=== PATIENT | female | born 1970 | race Caucasian/White ===

== ENCOUNTER 2021-12-14 02:52 | Emergency (ER) | payer SELFPAY ==
[2021-12-14 03:08] VITALS: BP 139/83
[2021-12-14] MEDS ORDERED: diphenhydrAMINE 50 MG/ML INJ (BENADRYL) IVP ONE (03:30)
[2021-12-14] MEDS ORDERED: methylPREDNISolone 125 MG (Solu-MEDROL) VIAL IVP ONE (03:30)
[2021-12-14] MEDS ORDERED: FAMOTIDINE 20MG/2ML IV (PEPCID) IVP ONE (03:30)
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
[2021-12-14] MEDS ORDERED: PRD20T PO (04:51)
[2021-12-14] MEDS ORDERED: FAMO40TA72 PO (04:51)
== END 2021-12-14 04:56 | disposition home or self-care (01) ==
LOC: ER 02:57
DX: L50.9 Urticaria, unspecified (principal); Z28.310 Unvaccinated for COVID-19
CPT/HCPCS: 82947